=== PATIENT | female | born 1955 | race Caucasian/White ===

== ENCOUNTER 2018-05-20 10:51 | Emergency (ER) | payer BC ==
[~2018-05-20] VITALS: Ht 167.6 cm; Wt 90.3 kg
[2018-05-20 11:46] VITALS: BP 171/117
[2018-05-20] MEDS ORDERED: TETanus/Pertussis (Acell)/Diphther VAC/PF (Tdap-Adult) 0.5ml syringe IM ONE (11:55)
[2018-05-20] MEDS ORDERED: acetaminophen w/codeine (60MG) #4 tablet PO PRN (12:00)
[2018-05-20] MEDS ORDERED: ACET-3068 PO (12:04)
[2018-05-20] MEDS ORDERED: acetaminophen w/codeine (30MG) #3 tablet PO ONE (12:20)
== END 2018-05-20 12:30 | disposition home or self-care (01) ==
LOC: ER 10:51
DX: S00.03XA Contusion of scalp, initial encounter (principal); S80.211A Abrasion, right knee, initial encounter; M54.2 Cervicalgia; Z88.6 Allergy status to analgesic agent; Z88.5 Allergy status to narcotic agent; Z79.899 Other long term (current) drug therapy; W01.0XXA Fall on same level from slipping, tripping and stumbling without subsequent striking against object, initial encounter; Y93.89 Activity, other specified; Y92.89 Other specified places as the place of occurrence of the external cause; Y99.8 Other external cause status
CPT/HCPCS: 90471; 90715; 99284

== ENCOUNTER 2022-10-17 10:37 | Outpatient (CLI) | payer MEDICARE | END 2022-10-17 23:59 | disposition home or self-care (01) | LOC: RAD 10:37 | PROVIDERS: ATTEND Nurse Practitioner | DX: M47.817 Spondylosis without myelopathy or radiculopathy, lumbosacral region (principal); M48.07 Spinal stenosis, lumbosacral region; M51.27 Other intervertebral disc displacement, lumbosacral region; M12.88 Other specific arthropathies, not elsewhere classified, other specified site; M79.606 Pain in leg, unspecified | CPT/HCPCS: 72148 ==